=== PATIENT | female | born 1955 | race Caucasian/White ===

== ENCOUNTER 2017-10-18 08:53 | Outpatient (CLI) | payer BC | END 2017-10-18 08:54 | disposition home or self-care (01) | LOC: BICMAMMO 08:53 | PROVIDERS: ATTEND Family Medicine | DX: Z12.31 Encounter for screening mammogram for malignant neoplasm of breast (principal); Z90.710 Acquired absence of both cervix and uterus | CPT/HCPCS: 77063; 77067 ==

== ENCOUNTER 2018-09-11 09:12 | Outpatient (CLI) | payer BC ==
--- NOTE | 2018-09-11 12:21 | BD ---
DEXA SCAN: Date: 09/11/18 INDICATION: Osteoporosis screening. FINDINGS: Lumbar Spine: BMD (g/cm2) L1 0.852 T-Score: -1.3 Z-Score: 0.2 L2 0.932 T-Score: -0.9 Z-Score: 0.6 L3 0.904 T-Score: -1.6 Z-Score: -0.1 L4 0.870 T-Score: -1.7 Z-Score: -0.2 L1-L4 0.889 T-Score: -1.4 Z-Score: 0.0 Left Femoral Neck: 0.684 T-Score: -1.5 Z-Score: -0.2 Left Total Hip: 0.895 T-Score: -0.4 Z-Score: 0.6 IMPRESSION: Based on WHO criteria, the patient's bone mineral density is osteopenic. The patient is at moderate r isk for fracture. POS: [facility]
== END 2018-09-11 09:13 | disposition home or self-care (01) ==
LOC: BICMAMMO 09:12
PROVIDERS: ATTEND Internal Medicine Rheumatology
DX: Z13.820 Encounter for screening for osteoporosis (principal); M85.89 Other specified disorders of bone density and structure, multiple sites
CPT/HCPCS: 77080

== ENCOUNTER 2018-10-24 12:43 | Outpatient (CLI) | payer BC ==
--- NOTE | 2018-10-24 14:14 | MMO ---
Bilateral MAMMO Bilat Screen [facility]. CLINICAL HISTORY: Patient is 63 years old and is seen for screening. The patient has no family history of breast cancer. The patient has a history of left Ultrasound Guided Core Biopsy in September, - benign. VIEWS: The views performed were: bilateral craniocaudal with tomosynthesis and bilateral mediolateral oblique with tomosynthesis. FILMS COMPARED: The present examination has been compared to prior imaging studies performed at [facility] on 10/07/2014, 10/08/2015, 10/10/2016 and 10/18/2017. MAMMOGRAM FINDINGS: There are scattered fibroglandular densities. There are stable benign appearing calcifications seen in both breasts. Nodularity is stable. There are no suspicious masses, suspicious calcifications, or new areas of architectural distortion. IMPRESSION: THERE IS NO MAMMOGRAPHIC EVIDENCE OF MALIGNANCY. A ROUTINE FOLLOW-UP MAMMOGRAM IN 1 YEAR IS RECOMMENDED. THE RESULTS OF THIS EXAM WERE SENT TO THE PATIENT. ACR BI-RADS Category 2 - Benign finding MAMMOGRAPHY NOTE: 1. A negative mammogram report should not delay a biopsy if a dominant of clinically suspicious mass is present. 2. Approximately 10% to 15% of breast cancers are not detected by mammography. 3. Adenosis and dense breasts may obscure an underlying neoplasm. Reported by: RED BRAGG MD Electonically Signed: [id number]
== END 2018-10-24 12:44 | disposition home or self-care (01) ==
LOC: BICMAMMO 12:43
PROVIDERS: ATTEND Family Medicine
DX: Z12.31 Encounter for screening mammogram for malignant neoplasm of breast (principal)
CPT/HCPCS: 77063; 77067

== ENCOUNTER 2019-01-10 07:24 | Outpatient (CLI) | payer BC ==
--- NOTE | 2019-01-10 10:46 | CT ---
CT ABDOMEN AND PELVIS WITH ORAL AND IV CONTRAST: Date: 01/10/19 HISTORY: Rectal bleeding, lower abdominal pain and diarrhea. COMPARISON: 06/30/03. FINDINGS: There are minimal dependent changes in the lung bases. There is a 4 mm low density lesion in the righ t lobe of the liver and 4 mm low density lesion in the left lobe of the liver which was not seen on t he previous study. A 14 mm low density lesion is seen in the posterior aspect of the spleen which is likely larger than on the previous study. The pancreas, adrenal glands, and kidneys are normal. No ca lcified gallstones are seen. No free air, free fluid, or lymphadenopathy seen in the abdomen or pelvis. There are vascular calcifi cations without evidence of aneurysmal dilatation of the abdominal aorta. The small bowel loops are n ot abnormally dilated. The patient is post cholecystectomy and hysterectomy. There is sigmoid diverti culosis without diverticulitis. There are vascular calcifications without evidence of aneurysmal dilatation of the abdominal aorta. T here are mild degenerative changes in the spine. IMPRESSION: 1. Low density lesions in the liver and spleen, statistically likely to represent benign findings in the absence of known malignancy. 2. Sigmoid diverticulosis. POS: [facility]
[2019-01-10] MEDS ORDERED: Iopamidol-370 76% 500 ML 1 ML ONE (15:05)
== END 2019-01-10 07:25 | disposition home or self-care (01) ==
LOC: BICCT 07:24
PROVIDERS: ATTEND Physician Assistant Medical
DX: R10.30 Lower abdominal pain, unspecified (principal); K62.5 Hemorrhage of anus and rectum; R19.7 Diarrhea, unspecified; K57.30 Diverticulosis of large intestine without perforation or abscess without bleeding; K76.9 Liver disease, unspecified; D73.89 Other diseases of spleen
CPT/HCPCS: 74177; 82565; Q9967

== ENCOUNTER 2019-07-11 08:20 | Outpatient (CLI) | payer BC ==
--- NOTE | 2019-07-11 11:28 | CT ---
CT ABDOMEN AND PELVIS WITH IV CONTRAST: Oral contrast was also administered. Multiplanar reconstruction. INDICATION: Followup liver and spleen lesions. COMPARISON: Comparison is made to exam of 01/10/2019. That exam described 2 small low-density lesions in the clint er, a 4 mm lesion in the left lobe, and a 4 mm lesion in the peripheral right lobe. They also descri bed a 1.4 cm low-density lesion along the posterior margin of the spleen. FINDINGS: Lung bases clear. Review of the liver again demonstrates the tiny low-density lesions which were noted on the prior exa m. The left lobe lesion is very tiny on today's study and is best seen on the coronal images. It me asures in the 3 mm range. The right lobe lesion peripherally is again seen and is unchanged measurin g in the 4-5 mm range. The low-density lesion along the posterior margin of the spleen is again seen and is stable measuring 1.4 cm. Liver, spleen, and pancreas otherwise unremarkable. Stomach and duodenum unremarkable. Adrenal glands and kidneys unremarkable. Small bowel loops and colon unremarkable. Aorta shows atherosclerotic change without aneurysm. No free fluid. No mass or adenopathy. Images through the pelvis show evidence of hysterectomy. Osseous structures unremarkable. IMPRESSION: 1. There are 2 tiny low-density lesions in the liver which are again seen and are stable. These are most consistent with tiny hepatic cysts. 2. There is a low-density lesion along the posterior margin of the spleen which is stable and is mos t consistent with a small splenic cyst. 3. CT abdomen and pelvis otherwise unremarkable and unchanged. POS: [facility]
== END 2019-07-11 08:21 | disposition home or self-care (01) ==
LOC: BICCT 08:20
PROVIDERS: ATTEND Internal Medicine Gastroenterology
DX: R93.3 Abnormal findings on diagnostic imaging of other parts of digestive tract (principal); K76.9 Liver disease, unspecified; D73.89 Other diseases of spleen
CPT/HCPCS: 74177

== ENCOUNTER 2021-11-02 12:56 | Outpatient (CLI) | payer BC | END 2021-11-02 12:57 | disposition home or self-care (01) | LOC: BICMAMMO 12:56 | PROVIDERS: ATTEND Obstetrics & Gynecology | DX: Z12.31 Encounter for screening mammogram for malignant neoplasm of breast (principal); M81.0 Age-related osteoporosis without current pathological fracture; M85.89 Other specified disorders of bone density and structure, multiple sites; Z91.89 Other specified personal risk factors, not elsewhere classified | CPT/HCPCS: 77063; 77067; 77080 ==

== ENCOUNTER 2022-10-25 13:02 | Outpatient (CLI) | payer MEDICARE | END 2022-10-25 13:03 | disposition home or self-care (01) | LOC: SCSMRI 13:02 | PROVIDERS: ATTEND Family Medicine | DX: M51.16 Intervertebral disc disorders with radiculopathy, lumbar region (principal); M47.26 Other spondylosis with radiculopathy, lumbar region; M51.37 Other intervertebral disc degeneration, lumbosacral region | CPT/HCPCS: 72148 ==

== ENCOUNTER 2023-11-22 10:45 | Outpatient (CLI) | payer MEDICARE | END 2023-11-22 10:46 | disposition home or self-care (01) | LOC: BICMAMMO 10:45 | PROVIDERS: ATTEND Obstetrics & Gynecology | DX: Z12.31 Encounter for screening mammogram for malignant neoplasm of breast (principal); Z85.41 Personal history of malignant neoplasm of cervix uteri; Z91.89 Other specified personal risk factors, not elsewhere classified | CPT/HCPCS: 77067 ==

== ENCOUNTER 2024-01-02 13:06 | Outpatient (CLI) | payer MEDICARE | END 2024-01-02 13:07 | disposition home or self-care (01) | LOC: BICMAMMO 13:06 | PROVIDERS: ATTEND Family Medicine | DX: Z78.0 Asymptomatic menopausal state (principal); M85.851 Other specified disorders of bone density and structure, right thigh | CPT/HCPCS: 77080 ==

== ENCOUNTER 2024-11-25 11:06 | Outpatient (CLI) | payer MEDICARE | END 2024-11-25 11:07 | disposition home or self-care (01) | LOC: BICMAMMO 11:06 | PROVIDERS: ATTEND Obstetrics & Gynecology | DX: Z12.31 Encounter for screening mammogram for malignant neoplasm of breast (principal); Z85.41 Personal history of malignant neoplasm of cervix uteri; Z91.89 Other specified personal risk factors, not elsewhere classified | CPT/HCPCS: 77063; 77067 ==